=== PATIENT | male | born 1980 | race Two or more races ===

== ENCOUNTER 2018-01-29 12:26 | Emergency (ER) | payer OTHER ==
[2018-01-29] MEDS ORDERED: LIDOCAINE HCL 2% MPF SOL ONE ×2 (12:31→14:00)
[2018-01-29] MEDS ORDERED: LIDOCAINE HCL 2% MPF SOL SC ONE ×2 (12:33→15:14)
[2018-01-29] MEDS ORDERED: TDAP VACCINE 0.5 ML SUS IM ONE ×2 (12:36→12:41)
[2018-01-29 13:25] VITALS: BP 123/74; PULSE 82; RESP 16; TEMP 96.2; O2SAT 99
[2018-01-29] MEDS ORDERED: BUPIVACAINE HCL 0.25% MPF 10 ML SOL INFIL ONE ×2 (14:00→14:20)
== END 2018-01-29 15:15 | disposition home or self-care (01) ==
LOC: ED 12:26
DX: S62.663B Nondisplaced fracture of distal phalanx of left middle finger, initial encounter for open fracture (principal); S60.132A Contusion of left middle finger with damage to nail, initial encounter; W23.0XXA Caught, crushed, jammed, or pinched between moving objects, initial encounter
CPT/HCPCS: 73140; 90715; 99283

== ENCOUNTER 2018-03-05 15:00 | Outpatient (CLI) | payer OTHER ==
[2018-01-29 13:25] VITALS: O2SAT 99
== END 2018-03-05 15:01 | disposition home or self-care (01) | DRG 561 ==
LOC: CONVCARE 15:00
PROVIDERS: ATTEND Orthopaedic Surgery
DX: S62.633D Displaced fracture of distal phalanx of left middle finger, subsequent encounter for fracture with routine healing (principal)
CPT/HCPCS: 73140